=== PATIENT | male | born 1970 | race American Indian/Alaskan Native ===

== ENCOUNTER 2017-03-10 14:41 | Emergency (ER) | payer OTHER ==
[2017-03-10 15:23] VITALS: BMI 18.1
[2017-03-10 15:26] VITALS: BP 129/82; PULSE 60; RESP 18; TEMP 98.4; O2SAT 99
--- NOTE | 2017-03-10 16:16 | C.PDOC ---
History Of Present Illness 46 year old male with a Hx of a left BKA who presents to the ER for an evaluation of left knee pain that has been gradually worsening over the last 3 days. Patient reports he has been wearing his prosthesis and walking a lot for the past 3 days and believes he might have irritated his knee. Patient denies direct trauma/injury or skin changes. Patient able to ambulate with assistance of crutches. Time Seen by Provider: 03/10/17 15:33 Chief Complaint (Nursing): Lower Extremity Problem/Injury History Per: Patient History/Exam Limitations: no limitations Onset/Duration Of Symptoms: Days, Gradual Current Symptoms Are (Timing): Still Present Recent travel outside of the [place]: No Past Medical History Reviewed: Historical Data, Nursing Documentation, Vital Signs Vital Signs: Last Vital Signs Temp 98.4 F 03/10/17 15:23 Pulse 60 03/10/17 15:23 Resp 18 03/10/17 15:23 BP 129/82 03/10/17 15:23 Pulse Ox 99 03/10/17 16:16 - Medical History PMH: No Chronic Diseases Other Surgeries: Left below knee amputation Family History: States: No Known Family Hx - Social History Hx Tobacco Use: No Hx Alcohol Use: No Hx Substance Use: No - Immunization History Hx Tetanus Toxoid Vaccination: No Hx Influenza Vaccination: No Hx Pneumococcal Vaccination: No Review Of Systems Except As Marked, All Systems Reviewed And Found Negative. Constitutional: Negative for: Fever, Chills ENT: Negative for: Throat Pain Musculoskeletal: Positive for: Other (Left knee pain) Skin: Negative for: Rash, Bruising Neurological: Negative for: Weakness, Numbness Physical Exam - Physical Exam Appears: Well, Non-toxic, No Acute Distress Skin: Normal Color, Warm, No Rash, No Ecchymosis Extremity: Tenderness (mod tenderness over lateral aspect Left knee. NO obvious defomrity or skin changes, no edema/effusion or erythema. FAROM of Left knee without difficulty.), Other (Left lower leg amputation below knee. NO cellulitis , healed well.) Neurological/Psych: Oriented x3, Normal Speech, Normal Motor, Normal Sensation, Normal Reflexes ED Course And Treatment O2 Sat by Pulse Oximetry: 99 - Other Rad Left knee X-Ray: Interpreted by Me, Viewed By Me Interpretation: (+)BKA, no acute fx or dislocation Progress Note: On re-evaluation, pt is afebrile, hemodynamicaly stable. Non- toxic. Ambulate w/assistance of crutches. Left knee: mild tenderness left lateral. FAROM, no skin changes. XRay review and appears without acute abnormalities. Anderson wrap to Left nee applied. Pt advised on crutch use for 1 week, avoid prosthsis and ref. to F/U with Ortho in 2 days for re-evaluation. return to ED at any time if any worsening or new changes. Disposition Counseled Patient/Family Regarding: Diagnosis, Need For Followup, Rx Given - Disposition Referrals: Matthew Geller III, MD [Staff Provider] - Disposition: HOME/ ROUTINE Disposition Time: 16:19 Condition: STABLE Additional Instructions: Anderson wrap to Left knee Avoid prosthesis use for 1 week Take medication as prescribed Follow up with Orthopedist in 2-3 days for re-evaluation. Return to ED if any worsening or new changes. Prescriptions: traMADol [Ultram] 50 mg PO TID #7 tab Instructions: Knee Pain (ED) Forms: [facility] (Guyanese), Work Excuse - Clinical Impression Clinical Impression: Joint pain
--- NOTE | 2017-03-10 18:02 | RAD ---
PROCEDURE: Left Knee Radiographs. HISTORY: Pain. COMPARISON: None. FINDINGS: BONES: The patient is status post amputation through the proximal left tibia and fibula. No evidence of acute pathology in the osseous structures. JOINTS: Mild osteoarthritic changes at the left knee. JOINT EFFUSION: Possible small joint effusion OTHER FINDINGS: Scattered surgical clips seen in the soft tissue IMPRESSION: No evidence of acute pathology in the visualized osseous structures. Possible small joint effusion. Status post amputation through the proximal left tibia and fibula.
== END 2017-03-10 16:40 | disposition home or self-care (01) ==
LOC: C.ER 14:41
DX: M25.562 Pain in left knee (principal); Z89.512 Acquired absence of left leg below knee